=== PATIENT | female | born 1940 | race Caucasian/White ===

== ENCOUNTER 2018-01-19 12:45 | Emergency (ER) | payer MEDICARE, BC ==
[2018-01-19 14:12] VITALS: BP 135/77
[2018-01-19] MEDS ORDERED: Albuterol 2.5 MG/3 ML NEB.SOL* (0.083%) INH ONE (14:48)
--- NOTE | 2018-01-19 14:50 | UC ---
UC General HPI - HPI Summary HPI Summary: PT IS C/O A CONGESTED COUGH SINCE YESTERDAY. SHE IS NOT ABLE TO RAISE ANYTHING. SHE NOTED HER CHEST IS SORE FROM COUGHING. SOB ONLY WITH COUGHING FITS. + WHEEZING. NO FEVER OR CP. HAS COPD AND NOTES GETS ANTIBIOTIC WHICH WORKS WELL WHEN LIKE THIS. HAS NOT TRIED HER RESCUE INHALER. - History of Current Complaint Chief Complaint: UCRespiratory Stated Complaint: COUGH Time Seen by Provider: 01/19/18 14:43 Hx Obtained From: Patient Hx Last Menstrual Period: n/a Onset/Duration: Gradual Onset Timing: Constant Pain Intensity: 4 Aggravating: NOTHING Alleviating: NOTHING Associated Signs & Symptoms: Positive: Cough, SOB - WITH COUGHING ONLY, Wheezing. Negative: Chest Pain, Fever - Allergy/Home Medications Allergies/Adverse Reactions: Allergies Allergy/AdvReac Type Severity Reaction Status Date / Time Penicillins Allergy Rash Verified 01/19/18 14:07 Home Medications: Home Medications Acetaminophen [Acetaminophen Extra Strength] 1,000 mg PO Q6H PRN 01/19/18 [ History Confirmed 01/19/18] Atorvastatin* [Lipitor*] 10 mg PO DAILY 01/19/18 [History Confirmed 01/19/18] Cholecalciferol TAB* [Vitamin D TAB*] 1,000 unit PO DAILY 01/19/18 [History Confirmed 01/19/18] Enalapril TAB* [Vasotec TAB*] 20 mg PO QPM 01/19/18 [History Confirmed 01/19/18] Fluticasone HFA 110 mcg(NF) [Flovent HFA 110 mcg(NF)] 2 puff INH Q12H PRN [History Confirmed 01/19/18] Fluticasone/Vilanterol MDI(NF) [Breo Ellipta MDI 200/25(NF)] 1 puff INH DAILY [History Confirmed 01/19/18] Gabapentin CAP(*) [Neurontin 300 CAP(*)] 300 mg PO TID 01/19/18 [History Confirmed 01/19/18] Ibuprofen TAB* [Advil TAB*] 400 mg PO Q6H PRN 01/19/18 [History Confirmed ] L.acidoph,Paracasei, B.lactis [Probiotic] 1 each PO DAILY 01/19/18 [History Confirmed 01/19/18] Metoprolol Tartrate TAB* [Lopressor TAB*] 50 mg PO QAM 01/19/18 [History Confirmed 01/19/18] Omeprazole CAP* [Prilosec CAP* 20 MG] 40 mg PO DAILY 01/19/18 [History Confirmed 01/19/18] Oxybutynin XL TAB* [Ditropan XL TAB*] 10 mg PO DAILY PRN 01/19/18 [History Confirmed 01/19/18] Tiotropium CAP.INH* [Spiriva CAP.INH*] 1 cap INH DAILY 01/19/18 [History Confirmed 01/19/18] traMADol TAB* [Ultram*] 50 mg PO TID 01/19/18 [History Confirmed 01/19/18] PMH/Surg Hx/FS Hx/Imm Hx Cardiovascular History: Hypertension Respiratory History: COPD Other History Of: Negative For: HIV, Hepatitis B, Hepatitis C, Anticoagulant Therapy - Surgical History Surgical History: Yes Surgery Procedure, Year, and Place: L knee replacement, fusion in lumbar spine, cataracts, R shoulder, bi-lat carpel tunnel - Family History Known Family History: Positive: Cardiac Disease Negative: Hypertension - Social History Occupation: Retired Lives: Alone Alcohol Use: Rare Substance Use Type: None Smoking Status (MU): Former Smoker Type: Cigarettes Length of Time of Smoking/Using Tobacco: ~2PPD x 23 Years When Did the Patient Quit Smoking/Using Tobacco: 1980 - Immunization History Hx Tetanus, Diphtheria Vaccination: No Vaccination Up to Date: Yes Review of Systems Constitutional: Negative Skin: Negative Eyes: Negative ENT: Negative Respiratory: Shortness Of Breath, Cough Cardiovascular: Negative Gastrointestinal: Negative Genitourinary: Negative Motor: Negative Neurovascular: Negative Musculoskeletal: Negative Neurological: Negative Psychological: Negative Is Patient Immunocompromised?: No All Other Systems Reviewed And Are Negative: Yes Physical Exam Triage Information Reviewed: Yes Appearance: Well-Appearing Vital Signs: Initial Vital Signs Temp 98.3 F 01/19/18 14:05 Pulse 76 01/19/18 14:05 Resp 20 01/19/18 14:05 BP 135/77 01/19/18 14:05 Pulse Ox 100 01/19/18 14:05 Eyes: Positive: Conjunctiva Clear ENT: Positive: Pharynx normal, TMs normal. Negative: Nasal congestion, Nasal drainage Neck: Positive: Supple, Nontender, No Lymphadenopathy Respiratory: Positive: No respiratory distress, Decreased breath sounds, Other: - COUGH IS CONGESTED Cardiovascular: Positive: RRR, No Murmur, Pulses Normal Abdomen Description: Positive: Nontender, No Organomegaly, Soft. Negative: Distended, Guarding Bowel Sounds: Positive: Present Musculoskeletal: Positive: ROM Intact, No Edema Neurological: Positive: Alert Psychological: Positive: Age Appropriate Behavior Skin Exam: Normal Diagnostics - Radiology No standard instances Xray Interpretation: Positive (See Comments) - hyperinflation-see report Radiology Interpretation Completed By: Radiologist Re-Evaluation - Re-Evaluation Second Eval Re-Evaluation Time: 15:10 Change: Improved - PT HAS IMPROVED AERATION BUT IS NOW WHEEZING. SUBJECTIVELY NOT FEELING MUCH BETTER. Course/Dx - Course Course Of Treatment: no concern for acs or pe. no pneumonia. will tx for exacerbation copd and bronchitis. - Differential Dx - Multi-Symptom Provider Diagnoses: Exacerbation copd. bronchitis Discharge - Sign-Out/Discharge Documenting (check all that apply): Discharge/Admit/Transfer - Discharge Plan Condition: Stable Disposition: HOME Prescriptions: DOXYcycline CAP(*) [DOXYcycline 100MG CAP(*)] 100 mg PO BID 7 Days #14 cap predniSONE TAB* [Deltasone TAB*] 40 mg PO DAILY #8 tab Patient Education Materials: COPD (Chronic Obstructive Pulmonary Disease) (ED) , Acute Bronchitis (ED) Referrals: Cadence Lopez MD [Primary Care Provider] - 5 Days Additional Instructions: use rescue inhaler 2 puffs every 6 hours - Billing Disposition and Condition Condition: STABLE Disposition: HOME
[2018-01-19] MEDS ORDERED: predniSONE TAB* 20 MG PO ONE (15:13)
--- NOTE | 2018-01-19 16:10 | RAD ---
HISTORY: Cough, shortness of breath, wheezing COMPARISONS: 5 2006 VIEWS: 4: Frontal dual-energy and lateral views of the chest. FINDINGS: CARDIOMEDIASTINAL SILHOUETTE: The cardiomediastinal silhouette is normal. ZULEMA: The zulema are normal. PLEURA: The costophrenic angles are sharp. No pleural abnormalities are noted. LUNG PARENCHYMA: There is hyperinflation with flattening of the diaphragm and expansion of the AP diameter of the chest. ABDOMEN: The upper abdomen is clear. There is no subphrenic gas. BONES AND SOFT TISSUES: There is postsurgical change to the right shoulder. There is a scoliotic curvature of the spine. OTHER: None. IMPRESSION: HYPERINFLATION, CONSISTENT WITH COPD. NO ACTIVE CARDIOPULMONARY DISEASE.
--- NOTE | 2018-01-20 13:33 | UC ---
- Progress Note Progress Note: Rf for flovent inhaler sent as requested to pharmacy Re-Evaluation - Re-Evaluation Second Eval Re-Evaluation Time: 15:10 Change: Improved - PT HAS IMPROVED AERATION BUT IS NOW WHEEZING. SUBJECTIVELY NOT FEELING MUCH BETTER. Discharge - Sign-Out/Discharge Documenting (check all that apply): Post-Discharge Follow Up - Discharge Plan Condition: Stable Disposition: HOME Prescriptions: DOXYcycline CAP(*) [DOXYcycline 100MG CAP(*)] 100 mg PO BID 7 Days #14 cap Fluticasone HFA 110 mcg(NF) [Flovent HFA 110 mcg(NF)] 2 puff INH Q12H PRN 15 Days #1 mdi PRN Reason: Sob/Wheezing predniSONE TAB* [Deltasone TAB*] 40 mg PO DAILY #8 tab Patient Education Materials: Acute Bronchitis (ED), COPD (Chronic Obstructive Pulmonary Disease) (ED) Referrals: Cadence Lopez MD [Primary Care Provider] - 5 Days Additional Instructions: use rescue inhaler 2 puffs every 6 hours - Billing Disposition and Condition Condition: STABLE Disposition: HOME
== END 2018-01-19 16:27 | disposition home or self-care (01) ==
LOC: UCCORT 12:45
DX: J44.1 Chronic obstructive pulmonary disease with (acute) exacerbation (principal); Z88.0 Allergy status to penicillin; I10 Essential (primary) hypertension; Z87.891 Personal history of nicotine dependence
CPT/HCPCS: 71046; 99213; G0463; J7512